=== PATIENT | female | born 1985 | race African-American/Black ===

== ENCOUNTER 2021-06-23 20:45 | Emergency (ER) | payer BC, OTHER ==
[2021-06-23 20:52] VITALS: BP 123/74; PULSE 82; TEMP 97; BMI 20.9
[2021-06-23] MEDS ORDERED: KETOROLAC TROMETHAMINE 30 MG/1 ML VIAL IVPUSH ONE (21:28)
[2021-06-23] MEDS ORDERED: MAG HYDROX/AL HYDROX/SIMETH 30 ML UNIT-DOSE CUP PO ONE (21:28)
[2021-06-23] MEDS ORDERED: METOCLOPRAMIDE HCL INJECTION 10 MG/2 ML VIAL IVPB ONE (21:28)
[2021-06-23] MEDS ORDERED: KETOROLAC TROMETHAMINE 30 MG/1 ML VIAL ONE (21:29)
[2021-06-23] MEDS ORDERED: METOCLOPRAMIDE HCL INJECTION 10 MG/2 ML VIAL ONE (21:29)
[2021-06-23] MEDS ORDERED: SODIUM CHLORIDE 1,000 ML IV STA (22:23)
[2021-06-23] MEDS ORDERED: MAG HYDROX/AL HYDROX/SIMETH 30 ML UNIT-DOSE CUP ONE (22:29)
[2021-06-23 22:32] LABS: BASO % 0.2 % (0-2.0); EOS % 0.1 % (0-4.5); HEMATOCRIT 39.2 % (32.4-45.2); HEMOGLOBIN 13.3 GM/dL (10.7-15.3); LYMPH % 15.8 % (8-40); MCH 31.6 pg (25.7-33.7); MCHC 33.9 g/dl (32.0-36.0); MEAN CELL VOLUME 93.4 fl (80-96); MEAN PLT VOLUME 8.8 fl (7.5-11.1); MONO % 4.4 % (3.8-10.2); NEUT % 79.5 % (42.8-82.8); PLATELET COUNT 188 10^3/uL (134-434); WHITE BLOOD COUNT 7.3 K/mm3 (4.0-10.0)
[2021-06-23] MEDS ORDERED: ONDANSETRON *ODT* 4 MG TABLET ONE (22:36)
[2021-06-23] MEDS ORDERED: ONDANSETRON *ODT* 4 MG TABLET SL ONE (22:40)
[2021-06-23 22:43] LABS: CHLORIDE 106 mmol/L (98-107); SODIUM 136 mmol/L (136-145)
[2021-06-23 22:45] LABS: CALCIUM 8.9 mg/dL (8.5-10.1)
[2021-06-23 22:46] LABS: ALBUMIN 4.7 g/dl (3.4-5.0); BLOOD UREA NITROGEN 15.2 mg/dL (7-18); CO2 24 mmol/L (21-32); GLUCOSE,RANDOM 136 mg/dL (74-106); LIPASE 88 U/L (73-393)
[2021-06-23 22:49] LABS: CREATININE 1.2 mg/dL (0.55-1.3); SGOT/AST 62 U/L (15-37); SGPT/ALT 26 U/L (13-61)
[2021-06-23 22:50] LABS: BILIRUBIN,TOTAL 0.5 mg/dL (0.2-1); TOT PROT 8.8 g/dl (6.4-8.2)
[2021-06-23 22:52] LABS: ALK PHOS 77 U/L (45-117)
[2021-06-23 23:10] LABS: ANION GAP 6 MMOL/L (8-16)
[2021-06-24] MEDS ORDERED: LACTATED RINGERS SOLUTION 1000 ML INFUS.BAG IV ONE (00:35)
== END 2021-06-24 01:30 | disposition home or self-care (01) ==
LOC: JER 20:45
PROC: 3E0333Z Introduction of Anti-inflammatory into Peripheral Vein, Percutaneous Approach (ICD-10-PCS; principal; 2021-06-23)
PROC: 3E033GC Introduction of Other Therapeutic Substance into Peripheral Vein, Percutaneous Approach (ICD-10-PCS; 2021-06-23)
PROC: 3E0337Z Introduction of Electrolytic and Water Balance Substance into Peripheral Vein, Percutaneous Approach (ICD-10-PCS; 2021-06-23)
DX: R10.30 Lower abdominal pain, unspecified (principal); R11.14 Bilious vomiting
CPT/HCPCS: 36415; 71046-TC-FY; 76830-TC; 80053; 82550; 83690; 84132; 84484; 84703; 85025; 87086; 87491; 87591; 99284-25; Q0162